=== PATIENT | female | born 1990 | race Caucasian/White ===

== ENCOUNTER → 2018-07-04 | Outpatient (CLI) | payer BC ==
--- NOTE | 2018-07-04 12:14 | Diagnostic Imaging Report ---
INDICATION: survey. TECHNIQUE: Multiple real-time grayscale images were obtained over the gravid uterus. COMPARISON: There are no prior studies available for comparison. FINDINGS: There is a single live fetus in cephalic presentation. heart motion was noted and a rate of 143 BPM was recorded. There were no abnormalities identified. The growth parameters are fairly uniform. The placenta is posterior and is there is no previa. The amniotic fluid volume is within normal limits. The cervix measures 5 cm in length. Biometrical measurements are as follows: Biparietal 4.68 cm, age 20 weeks 2 days. Head circumference 17.55 cm, age 20 weeks 1 days. Abdominal circumference 15.64 cm, age 20 weeks 6 days. Femur length 3.20 cm, age 20 weeks 0 days. Sonographic estimate age: 20 weeks 3 days. Sonographic estimated date of delivery: 11/18/2018. Estimated Weight: 349 gm (+/- 51 gm). LMP percentile: 21%. heart rate: 143 beats per minute. number: 1 of 1. IMPRESSION: 1. There is a single live fetus at approximately 20 weeks 3 days gestation +/-1.5 weeks. The EDC is November 18, 2018. 2. There were no abnormalities identified. 3. The growth parameters are fairly uniform. Dictated by: Dictated on workstation # [id number]
== END ==
LOC: RAD 10:12
PROVIDERS: ATTEND Obstetrics & Gynecology
DX: Z36.89 Encounter for other specified antenatal screening (principal); Z3A.20 20 weeks gestation of pregnancy
CPT/HCPCS: 76805

== ENCOUNTER 2018-11-21 20:15 | Inpatient (IN) | payer BC | END 2018-11-23 16:55 | disposition home or self-care (01) | LOC: LDRP 20:15 ==